=== PATIENT | male | born 1940 | race Hispanic/Latino ===

== ENCOUNTER 2023-05-05 17:02 | Emergency (ER) | payer MEDICARE ==
[2023-05-05] MEDS ORDERED: methylPREDNISolone Sod Succ/PF 125 MG/2 ML VIAL ONE (17:11)
[2023-05-05 17:34] LABS: #Monocytes 0.6 thou/uL (0.11-0.59); #Neutrophils 3.3 thou/uL (1.40-6.50); %Basophils 0.8 % (0.0-1.0); %Eosinophils 0.6 % (0.0-10.0); %Lymphocytes 22.6 % (21.0-51.0); %Monocytes 12.3 % (0.0-10.0); %Neutrophils 63.5 % (42.0-75.0); Hematocrit 37.8 % (42.0-52.0); Hemoglobin 13.1 g/dL (14.0-18.0); Mean Corpuscular HGB CONC 34.7 g/dL (32.0-36.0); Mean Corpuscular Hemoglobin 35.2 pg (27.0-31.0); Mean Corpuscular Volume 101.6 fl (78.0-98.0); Platelet Count 178 10x3/uL (130-400); Red Blood Cell (RBC) Count 3.72 mill/uL (4.70-6.10); White Blood Cell (WBC) Count 5.2 10x3/uL (4.8-10.8)
[2023-05-05 17:59] LABS: ALT (SGPT) 46 U/L (8-55); AST (SGOT) 75 U/L (5-34); Acetaminophen Less than 10 mcg/mL (10.0-30.0); Albumin 3.6 g/dL (3.4-4.8); Alcohol 370.1 mg/dL (Less than 10); Alkaline Phosphatase 83 U/L (40-110); Anion Gap 17 mmol/L (10-20); BUN (Urea Nitrogen) 6 mg/dL (8.4-25.7); Bilirubin, Total 0.7 mg/dL (0.2-1.2); Calc. Creatinine Clearance 0 mL/min (70-130); Calcium 8.1 mg/dL (7.8-10.44); Carbon Dioxide 22 mmol/L (23-31); Chloride 99 mmol/L (98-107); Estimated GFR 89; Globulin 1.9 g/dL (2.4-3.5); Glucose 104 mg/dL (83-110); Potassium 3.4 mmol/L (3.5-5.1); Protein, Total 5.5 g/dL (5.8-8.1); Salicylate Less than 8.0 mg/dL (15.0-30.0); Sodium 135 mmol/L (136-145)
[2023-05-05 18:23] LABS: Bacteria/HPF None Seen HPF (None Seen); Bilirubin Negative (Negative); Blood, Urine Negative (Negative); CAUTI Indications for Culture Alt mental st,lethar; Clarity Clear (Clear); Glucose, Urine (Dipstick) Normal (Negative); Ketone, Urine Negative (Negative); Leukocyte Negative Leu/uL (Negative); Nitrite Negative (Negative); Protein, Urine (Dipstick) Negative (Neg-Trace); RBC/HPF None Seen HPF (0-3); Specific Gravity, Urine 1.003 (1.002-1.036); Squamous Epithelial None Seen HPF (0-3); Urobilinogen Normal mg/dL (Less than 2); WBC/HPF 0-3 HPF (0-3)
[2023-05-05 18:24] LABS: Urine Culture Reflex No No
== END 2023-05-05 21:44 | disposition home or self-care (01) ==
LOC: ERS 17:02
DX: F10.129 Alcohol abuse with intoxication, unspecified (principal); I10 Essential (primary) hypertension; F17.200 Nicotine dependence, unspecified, uncomplicated; Z79.899 Other long term (current) drug therapy; Y90.8 Blood alcohol level of 240 mg/100 ml or more
CPT/HCPCS: 70450; 71045; 72125; 72170; 80053; 80307; 81001; 83605; 85025; 87040; 87086; 93005; 96374; J2930

== ENCOUNTER 2023-06-16 19:13 | Inpatient (IN) | payer MEDICARE, OTHER ==
[2023-06-16 19:54] LABS: #Monocytes 0.8 thou/uL (0.11-0.59); #Neutrophils 3.8 thou/uL (1.40-6.50); %Basophils 0.4 % (0.0-1.0); %Eosinophils 0.4 % (0.0-10.0); %Lymphocytes 15.3 % (21.0-51.0); %Monocytes 13.7 % (0.0-10.0); %Neutrophils 69.7 % (42.0-75.0); Hematocrit 39.1 % (42.0-52.0); Hemoglobin 13.9 g/dL (14.0-18.0); Mean Corpuscular HGB CONC 35.5 g/dL (32.0-36.0); Mean Corpuscular Hemoglobin 34.6 pg (27.0-31.0); Mean Corpuscular Volume 97.3 fl (78.0-98.0); Mean Platelet Volume 9.1 fL (7.4-10.4); Platelet Count 210 10x3/uL (130-400); RBC Distribution Width 11.5 % (11.5-14.5); Red Blood Cell (RBC) Count 4.02 mill/uL (4.70-6.10); White Blood Cell (WBC) Count 5.5 10x3/uL (4.8-10.8)
[2023-06-16 20:06] LABS: Bacteria/HPF None Seen HPF (None Seen); Bilirubin Negative (Negative); Blood, Urine Negative (Negative); CAUTI Indications for Culture Alt mental st,lethar; Clarity Clear (Clear); Glucose, Urine (Dipstick) Normal (Negative); Ketone, Urine Trace mg/dL (Negative); Leukocyte Negative Leu/uL (Negative); Nitrite Negative (Negative); Protein, Urine (Dipstick) Negative (Neg-Trace); RBC/HPF 0-3 HPF (0-3); Specific Gravity, Urine 1.005 (1.002-1.036); Squamous Epithelial None Seen HPF (0-3); Urobilinogen Normal mg/dL (Less than 2); WBC/HPF None Seen HPF (0-3); pH, Urine 5.5 (5.0-9.0)
[2023-06-16 20:08] LABS: Amphetamine Not Detected (NotDetected); Barbiturates Screen Not Detected (NotDetected); Benzodiazepine Screen Not Detected (NotDetected); Cocaine Metabolite Screen Not Detected (NotDetected); Methadone Not Detected (NotDetected); Methamphetamine Not Detected (NotDetected); Opiate Screen Not Detected (NotDetected); Oxycodone Screen Not Detected (NotDetected); Phencyclidine (PCP) Not Detected (NotDetected); THC/Cannabinoid Screen Not Detected (NotDetected); Tricyclic Screen Not Detected (NotDetected); Urine Culture Reflex No No
[2023-06-16 20:12] LABS: INR-International Normal Ratio 0.9; PTT 29.8 sec (22.9-36.1); Prothrombin Time 12.4 sec (12.0-14.7)
[2023-06-16 20:17] LABS: Acetaminophen Less than 10 mcg/mL (10.0-30.0); Alcohol 204.1 mg/dL (Less than 10); Salicylate Less than 8.0 mg/dL (15.0-30.0)
[2023-06-16 20:18] LABS: ALT (SGPT) 32 U/L (8-55); AST (SGOT) 37 U/L (5-34); Albumin 3.5 g/dL (3.4-4.8); Alkaline Phosphatase 159 U/L (40-110); Anion Gap 17 mmol/L (10-20); BUN (Urea Nitrogen) 9 mg/dL (8.4-25.7); Bilirubin, Total 1.2 mg/dL (0.2-1.2); Calc. Creatinine Clearance 0 mL/min (70-130); Calcium 8.9 mg/dL (7.8-10.44); Carbon Dioxide 25 mmol/L (23-31); Chloride 87 mmol/L (98-107); Estimated GFR 89; Globulin 2.5 g/dL (2.4-3.5); Glucose 84 mg/dL (83-110); Potassium 2.9 mmol/L (3.5-5.1); Sodium 126 mmol/L (136-145)
[2023-06-16 20:22] LABS: Troponin I 0.034 ng/mL (< 0.028)
[2023-06-16] MEDS ORDERED: Potassium Chloride 20 MEQ TAB ONE (20:42)
[2023-06-16] MEDS ORDERED: Multivitamins, Adult 10 ML, Thiamine HCl 100 MG, Folic Acid 1 MG in Dextrose 5 %-0.45 %... IV SCH (21:30)
[2023-06-16] MEDS ORDERED: chlordiazePOXIDE HCl 25 MG CAP ONE (22:28)
[2023-06-16] MEDS ORDERED: Lorazepam 1 MG TAB PO PRN (23:12)
[2023-06-16] MEDS ORDERED: Ondansetron ODT 4 MG TAB PO PRN ×2 (23:12→23:13)
[2023-06-16] MEDS ORDERED: Lorazepam 2 MG/ML VIAL IM PRN (23:12)
[2023-06-16] MEDS ORDERED: Acetaminophen 325 MG TAB PO PRN (23:13)
[2023-06-16] MEDS ORDERED: Nicotine 21 MG PATCH TD PRN (23:13)
[2023-06-16] MEDS ORDERED: Electrolyte Replacement Protocol 1 EACH FS SCH (23:15)
[2023-06-16] MEDS ORDERED: Ondansetron PF 4 MG/2 ML Vial SLOW IVP PRN (23:26)
[2023-06-16] MEDS ORDERED: D5 1/2 NS w/20 mEq KCL 1,000 ML IV SCH (23:30)
[2023-06-16 23:53] VITALS: BMI 22.7
[2023-06-17 00:17] LABS: Magnesium 1.9 mg/dL (1.6-2.6); Phosphorus 2.4 mg/dL (2.3-4.7)
[2023-06-17 00:22] LABS: Troponin I 0.024 ng/mL (< 0.028)
[2023-06-17] MEDS: Potassium Chloride 20 MEQ TAB PO SCH ×2 (00:27→05:31)
[2023-06-17] MEDS: Lorazepam 1 MG TAB PO SCH ×5 (00:28→23:56)
[2023-06-17] MEDS ORDERED: Magnesium 2 GM/50 ML(in water) 2 GM in Premix 1 BAG IVPB SCH (02:00)
[2023-06-17 02:10] LABS: #Eosinphils 0.1 thou/uL (0.0-0.7); #Monocytes 0.6 thou/uL (0.11-0.59); #Neutrophils 2.6 thou/uL (1.40-6.50); %Basophils 0.7 % (0.0-1.0); %Eosinophils 1.7 % (0.0-10.0); %Lymphocytes 21.7 % (21.0-51.0); %Neutrophils 61.7 % (42.0-75.0); Hematocrit 34.9 % (42.0-52.0); Hemoglobin 12.3 g/dL (14.0-18.0); Mean Corpuscular HGB CONC 35.2 g/dL (32.0-36.0); Mean Corpuscular Hemoglobin 34.9 pg (27.0-31.0); Mean Corpuscular Volume 99.1 fl (78.0-98.0); Platelet Count 182 10x3/uL (130-400); RBC Distribution Width 11.5 % (11.5-14.5); Red Blood Cell (RBC) Count 3.52 mill/uL (4.70-6.10); White Blood Cell (WBC) Count 4.1 10x3/uL (4.8-10.8)
[2023-06-17 02:45] LABS: ALT (SGPT) 27 U/L (8-55); AST (SGOT) 28 U/L (5-34); Alkaline Phosphatase 142 U/L (40-110); Anion Gap 18 mmol/L (10-20); BUN (Urea Nitrogen) 7 mg/dL (8.4-25.7); Bilirubin, Total 1.2 mg/dL (0.2-1.2); Calc. Creatinine Clearance 69 mL/min (70-130); Calcium 8.9 mg/dL (7.8-10.44); Carbon Dioxide 26 mmol/L (23-31); Chloride 94 mmol/L (98-107); Estimated GFR 91; Globulin 2.3 g/dL (2.4-3.5); Glucose 114 mg/dL (83-110); Protein, Total 5.3 g/dL (5.8-8.1); Sodium 135 mmol/L (136-145)
[2023-06-17] MEDS ORDERED: Multivitamins, Adult 10 ML, Thiamine HCl 100 MG, Folic Acid 1 MG in Dextrose 5 %-0.45 %... IV SCH (09:00)
[2023-06-17] MEDS ORDERED: FLU VACC QS2023(65UP)/MF59C/PF 60 MCG/0.5 ML SYRINGE IM ONE (09:00)
[2023-06-17] MEDS: Multivit, Therapeutic 1 TAB PO SCH (09:57)
[2023-06-17] MEDS: Folic Acid 1 MG TAB PO SCH (09:57)
[2023-06-17] MEDS: Famotidine 20 MG TAB PO SCH ×2 (09:57→20:51)
[2023-06-17] MEDS: Thiamine HCl 200 MG/2 ML VIAL SLOW IVP SCH (20:51)
[2023-06-17] MEDS ORDERED: Lorazepam 1 MG TAB PO PRN (23:12)
[2023-06-18] MEDS: Lorazepam 1 MG TAB PO SCH ×2 (04:57→13:26)
[2023-06-18] MEDS: Multivit, Therapeutic 1 TAB PO SCH (09:31)
[2023-06-18] MEDS: Folic Acid 1 MG TAB PO SCH (09:32)
[2023-06-18] MEDS: Famotidine 20 MG TAB PO SCH ×2 (09:32→20:04)
[2023-06-18 10:25] LABS: #Basophils 0.1 thou/uL (0.0-0.2); #Eosinphils 0.1 thou/uL (0.0-0.7); #Monocytes 0.9 thou/uL (0.11-0.59); #Neutrophils 3.3 thou/uL (1.40-6.50); %Eosinophils 1.2 % (0.0-10.0); %Lymphocytes 14.9 % (21.0-51.0); %Monocytes 16.8 % (0.0-10.0); %Neutrophils 65.9 % (42.0-75.0); Hematocrit 38.4 % (42.0-52.0); Hemoglobin 13.1 g/dL (14.0-18.0); Mean Corpuscular HGB CONC 34.1 g/dL (32.0-36.0); Mean Corpuscular Hemoglobin 35.5 pg (27.0-31.0); Mean Corpuscular Volume 104.1 fl (78.0-98.0); Mean Platelet Volume 9.5 fL (7.4-10.4); Platelet Count 186 10x3/uL (130-400); RBC Distribution Width 11.6 % (11.5-14.5); Red Blood Cell (RBC) Count 3.69 mill/uL (4.70-6.10); White Blood Cell (WBC) Count 5.1 10x3/uL (4.8-10.8)
[2023-06-18 10:45] LABS: Anion Gap 12 mmol/L (10-20); BUN (Urea Nitrogen) 10 mg/dL (8.4-25.7); Calc. Creatinine Clearance 62 mL/min (70-130); Calcium 8.8 mg/dL (7.8-10.44); Carbon Dioxide 26 mmol/L (23-31); Chloride 104 mmol/L (98-107); Estimated GFR 88; Glucose 139 mg/dL (83-110); Potassium 3.8 mmol/L (3.5-5.1); Sodium 138 mmol/L (136-145)
[2023-06-18] MEDS: Thiamine HCl 200 MG/2 ML VIAL SLOW IVP SCH (20:04)
[2023-06-18] MEDS: Lorazepam 0.5 MG TAB PO SCH (23:09)
[2023-06-18] MEDS ORDERED: Lorazepam 1 MG TAB PO PRN (23:12)
[2023-06-19] MEDS: Lorazepam 0.5 MG TAB PO SCH ×3 (05:47→17:13)
[2023-06-19] MEDS: Famotidine 20 MG TAB PO SCH ×2 (09:03→20:31)
[2023-06-19] MEDS: Multivit, Therapeutic 1 TAB PO SCH (09:03)
[2023-06-19] MEDS: Folic Acid 1 MG TAB PO SCH (09:03)
[2023-06-19] MEDS: Thiamine 100 MG TAB PO SCH (20:31)
[2023-06-19] MEDS ORDERED: Lorazepam 0.5 MG TAB PO PRN (23:12)
[2023-06-20] MEDS: Famotidine 20 MG TAB PO SCH ×2 (09:30→20:44)
[2023-06-20] MEDS: Multivit, Therapeutic 1 TAB PO SCH (09:31)
[2023-06-20] MEDS: Folic Acid 1 MG TAB PO SCH (09:31)
[2023-06-20] MEDS ORDERED: Lisinopril 20 MG TAB PO SCH (16:38)
[2023-06-20] MEDS: Thiamine 100 MG TAB PO SCH (20:44)
[2023-06-21] MEDS: Lisinopril 20 MG TAB PO SCH (09:18)
[2023-06-21] MEDS: Famotidine 20 MG TAB PO SCH ×2 (09:19→19:44)
[2023-06-21] MEDS: Multivit, Therapeutic 1 TAB PO SCH (09:19)
[2023-06-21] MEDS: Folic Acid 1 MG TAB PO SCH (09:19)
[2023-06-21] MEDS: Thiamine 100 MG TAB PO SCH (19:44)
[2023-06-22] MEDS: Lisinopril 20 MG TAB PO SCH (08:27)
[2023-06-22] MEDS: Famotidine 20 MG TAB PO SCH (08:27)
[2023-06-22] MEDS: Multivit, Therapeutic 1 TAB PO SCH (08:27)
[2023-06-22] MEDS: Folic Acid 1 MG TAB PO SCH (08:27)
[2023-06-22 08:39] VITALS: BP 147/93; TEMP 98.1
== END 2023-06-22 16:44 | disposition home or self-care (01) | DRG 896 ==
LOC: ERS 19:13 → 2NO 22:21 → OBSVTOIN 06-18 19:33 → T4-B 06-19 15:07
PROVIDERS: ADMIT Student in an Organized Health Care Education/Training Program; ATTEND Internal Medicine
DX: F10.229 Alcohol dependence with intoxication, unspecified (principal); I21.A1 Myocardial infarction type 2; E87.1 Hypo-osmolality and hyponatremia; Z66 Do not resuscitate; E87.6 Hypokalemia; R79.89 Other specified abnormal findings of blood chemistry; I10 Essential (primary) hypertension; F17.210 Nicotine dependence, cigarettes, uncomplicated; Y90.7 Blood alcohol level of 200-239 mg/100 ml; Z88.0 Allergy status to penicillin; Z88.1 Allergy status to other antibiotic agents; Z59.9 Problem related to housing and economic circumstances, unspecified
CPT/HCPCS: 36415; 70450; 80048; 80053; 80306; 80307; 81001; 82140; 83735; 84100; 84484; 85025; 85610; 85730; 93005; 94760; 96365; 96375; G0378; J3411; J3475; J3480; J7042

== ENCOUNTER 2023-07-10 23:05 | Emergency (ER) | payer MEDICARE ==
[2023-07-10 23:49] LABS: #Monocytes 0.7 thou/uL (0.11-0.59); #Neutrophils 5.2 thou/uL (1.40-6.50); %Basophils 0.4 % (0.0-1.0); %Eosinophils 0.4 % (0.0-10.0); %Monocytes 9.7 % (0.0-10.0); %Neutrophils 74.1 % (42.0-75.0); Hematocrit 40.5 % (42.0-52.0); Hemoglobin 14.5 g/dL (14.0-18.0); Mean Corpuscular HGB CONC 35.8 g/dL (32.0-36.0); Mean Corpuscular Hemoglobin 34.9 pg (27.0-31.0); Mean Corpuscular Volume 97.4 fl (78.0-98.0); Mean Platelet Volume 8.9 fL (7.4-10.4); Platelet Count 179 10x3/uL (130-400); RBC Distribution Width 12.2 % (11.5-14.5); Red Blood Cell (RBC) Count 4.16 mill/uL (4.70-6.10)
[2023-07-11 00:28] LABS: Troponin I 0.016 ng/mL (< 0.028)
[2023-07-11 00:57] LABS: ALT (SGPT) 24 U/L (8-55); AST (SGOT) 43 U/L (5-34); Albumin 3.5 g/dL (3.4-4.8); Alkaline Phosphatase 122 U/L (40-110); Anion Gap 20 mmol/L (10-20); BUN (Urea Nitrogen) 9 mg/dL (8.4-25.7); Calc. Creatinine Clearance 0 mL/min (70-130); Calcium 8.6 mg/dL (7.8-10.44); Carbon Dioxide 18 mmol/L (23-31); Chloride 97 mmol/L (98-107); Estimated GFR 89; Globulin 2.1 g/dL (2.4-3.5); Glucose 106 mg/dL (83-110); Potassium 3.9 mmol/L (3.5-5.1); Protein, Total 5.6 g/dL (5.8-8.1); Sodium 131 mmol/L (136-145)
[2023-07-11 01:00] LABS: Acetaminophen Less than 10 mcg/mL (10.0-30.0); Alcohol 255.3 mg/dL (Less than 10); Lipase 65 U/L (8-78)
[2023-07-11 01:01] LABS: Salicylate Less than 8.0 mg/dL (15.0-30.0)
[2023-07-11 01:17] LABS: Magnesium 3.5 mg/dL (1.6-2.6)
[2023-07-11 02:28] LABS: Bacteria/HPF None Seen HPF (None Seen); Bilirubin Negative (Negative); Blood, Urine Negative (Negative); CAUTI Indications for Culture Pelvic or flank pain; Clarity Clear (Clear); Glucose, Urine (Dipstick) Normal (Negative); Ketone, Urine Negative (Negative); Leukocyte Negative Leu/uL (Negative); Nitrite Negative (Negative); Protein, Urine (Dipstick) Negative (Neg-Trace); RBC/HPF None Seen HPF (0-3); Specific Gravity, Urine 1.002 (1.002-1.036); Squamous Epithelial 0-3 HPF (0-3); Urobilinogen Normal mg/dL (Less than 2); WBC/HPF 0-3 HPF (0-3); pH, Urine 5.5 (5.0-9.0)
[2023-07-11 02:32] LABS: Urine Culture Reflex No No
[2023-07-11 02:36] LABS: Amphetamine Not Detected (NotDetected); Barbiturates Screen Not Detected (NotDetected); Benzodiazepine Screen Not Detected (NotDetected); Cocaine Metabolite Screen Not Detected (NotDetected); Methadone Not Detected (NotDetected); Methamphetamine Not Detected (NotDetected); Opiate Screen Not Detected (NotDetected); Oxycodone Screen Not Detected (NotDetected); Phencyclidine (PCP) Not Detected (NotDetected); THC/Cannabinoid Screen Not Detected (NotDetected); Tricyclic Screen Not Detected (NotDetected)
== END 2023-07-11 04:24 | disposition home or self-care (01) ==
LOC: ERS 23:05
DX: S80.212A Abrasion, left knee, initial encounter (principal); S80.211A Abrasion, right knee, initial encounter; S60.512A Abrasion of left hand, initial encounter; S60.511A Abrasion of right hand, initial encounter; S40.812A Abrasion of left upper arm, initial encounter; S40.811A Abrasion of right upper arm, initial encounter; F10.129 Alcohol abuse with intoxication, unspecified; L71.1 Rhinophyma; I10 Essential (primary) hypertension; F17.210 Nicotine dependence, cigarettes, uncomplicated; W18.30XA Fall on same level, unspecified, initial encounter; Z79.82 Long term (current) use of aspirin; Z79.899 Other long term (current) drug therapy
CPT/HCPCS: 36415; 70450; 72125; 80053; 80306; 80307; 81001; 83690; 83735; 84484; 85025; 93005